=== PATIENT | male | born 1945 | race Caucasian/White ===

== ENCOUNTER → 2022-06-07 08:51 | Outpatient (CLI) | payer OTHER, SELFPAY ==
--- NOTE | 2022-06-07 | DI.NM.S_ITS ---
PROCEDURE: NM DANNIELLE PERF SPECT R&S PHARM Rest and pharmacological stress myocardial perfusion SPECT with gated imaging and ejection fraction RADIOPHARMACEUTICAL: 11.9 mCi Tc-99m tetrafosmin IV at rest and 24.8 mCi Tc-99m tetrafosmin IV at peak effect of pharmacological stress. [id number] was performed. INDICATIONS: Chest pain TECHNIQUE: Radiopharmaceutical was injected at peak stress test, and also at rest. SPECT images were obtained. SPECT myocardial perfusion images were displayed in short axis, horizontal long axis, and vertical long axis views. Gated images were reviewed using [employer] software. COMPARISON: None. CARDIAC STRESS: A pharmacologic stress test was performed under the supervision of an attending staff, using an infusion of lexiscan 0.4mg IV X1. Hemodynamic data: There is normal blood pressure and heart rate response to pharmacologic stress. Symptoms: The patient denied anginal chest pain. Aminophylline: none EKG: No diagnostic changes of ischemia; no ectopy. FINDINGS: Raw data: There is good myocardial uptake of radiotracer. No significant motion artifacts. Left ventricle function: Gated images demonstrate normal left ventricular wall thickening. No segmental wall motion abnormalities. No transient ischemic dilation; TID is 0.93 (normal less than 1.3). Left ventricle resting end diastolic volume is 148mL. Left ventricle stress ejection fraction is 66%; normal range is above 45%. Myocardial perfusion: There is a mildly intense fixed apical defect that is probably apical thinning artifact but small prior non-transmural AL can't be excluded. No ischemia. SSS 0. No prone imaging due to limited mobility. IMPRESSION: Low risk, probably normal pharmaceutical nuclear stress test 1) There is a mildly intense fixed apical defect that is probably apical thinning artifact but small prior non-transmural AL can't be excluded. No ischemia. SSS 0. No prone imaging due to limited mobility. 2) Enlarged left ventricle with normal wall motion and normal systolic function (EF post stress 66%). 3) No diagnostic ST changes with lexiscan. 4) No angina during the study. 5) No prior nuclear stress test available for comparison. Dictated by: Penelope Murrell MD on 06/07/2022 at 16:53 Approved by: Penelope Murrell MD on 06/07/2022 at 16:57
== END ==
PROVIDERS: PCP Physician Assistant Medical; Referring Provider Physician Assistant Medical; Visit Provider Physician Assistant Medical
DX: R07.9 Chest pain, unspecified (principal)
CPT/HCPCS: 78452; 93017; A9502; J2785